=== PATIENT | male | born 1985 | race Caucasian/White ===

== ENCOUNTER 2016-11-12 10:51 | Emergency (ER) | payer MEDICAID, OTHER ==
[~2016-11-12] VITALS: Wt 68.0 kg
[~2016-11-12 10:51] MED LIST: HYDR-3720 PO; IBUP800T25 PO
[2016-11-12] MEDS ORDERED: IBUPROFEN 600 MG TAB PO ONE (14:00)
[2016-11-12] MEDS ORDERED: DIPHTH/TET/ACEL PERTUSS (ADULT) 0.5 ML VIAL IM* ONE (14:00)
[2016-11-12] MEDS ORDERED: LIDOCAINE 1% (MDV) 20 ML INJ SC ONE (14:00)
[2016-11-12] MEDS ORDERED: IBUP-1542 PO (14:21)
--- NOTE | 2016-11-12 15:23 | ERD ---
ER Documentation Chief Complaint Date/Time DATE: 11/12/16 TIME: 15:09 Chief Complaint lip laceration from trauma from a metal lather HPI 31-year-old male presents to ED with small liver laceration and tooth injury. Patient stated that he was working with a power metal lather at work, the laboratory apparatus glass grinder blade broke and kicked the laboratory apparatus glass grinder back towards him and hit his teeth. 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 The broken off plate hit his lower lip and caused a small laceration. Denies loss of consciousness. Denies any other injuries. ROS All systems reviewed and are negative except as per history of present illness. Medications Home Meds Active Scripts Ibuprofen* (Motrin*) 600 Mg Tab, 600 MG PO Q6H Y for PAIN AND OR ELEVATED TEMP, #30 TAB Prov:MAINOR ARCEO. PUPPET MASTER 11/12/16 Ibuprofen* (Motrin*) 800 Mg Tab, 800 MG PO Q6, #30 TAB Prov:LEKKOS,APOSTOLOS A. DO 05/11/16 Hydrocodone Bit-Acetaminophen* ([place]*) 7.5-325 Tablet, 1 TAB PO Q4H Y for PAIN , #14 TAB Prov:LEKKOS,APOSTOLOS A. DO 05/11/16 Allergies Allergies: Coded Allergies: No Known Drug Allergies (Verified Allergy, Mild, 05/11/16) PMhx/Soc History of Surgery: Yes (BILAT INGUINAL HERNIA REPAIR) Anesthesia Reaction: No Hx Neurological Disorder: No Hx Respiratory Disorders: Yes (ASTHMA) Hx Cardiac Disorders: No Hx Psychiatric Problems: No Hx Miscellaneous Medical Probl: Yes Hx Alcohol Use: Yes (OCCASIONAL) Hx Substance Use: Yes (METH USE QUIT 2014) Hx Tobacco Use: Yes Smoking Status: Current every day smoker Physical Exam Vitals Vital Signs Date Time Temp Pulse Resp B/P Pulse Ox O2 Delivery O2 Flow Rate FiO2 11/12/16 11:04 98.1 85 20 131/84 97 Physical Exam General impression: Well-developed, well-nourished, 31-year-old male, alert, oriented, in no acute distress Head: Normocephalic, atraumatic. Eyes: PERRL, EOM normal. Conjunctiva not injected. ENT: Left upper first and second incisors, and right upper first incisor missing with roots intact. 0.5 cm laceration noted on the lower lip, crossing the vermilion border. Respiration: Normal respiratory effort. Lungs clear to auscultate bilaterally. No wheezes, rales or rhonchi. Cardiovascular: Regular rate and rhythm. No murmurs or extra heart sounds. Abdomen: Abdomen normal to inspection. Nontender. No masses or organomegaly. Bowel sounds normal. Neuro: Mental status normal, speech normal. Skin: Normal turgor. No rash or lesions. Psych: Normal mood and affect. Results 24 hrs Current Medications Medications (Trade) Dose Ordered Sig/Jb Route PRN Reason Start Time Stop Time Status Last Admin Dose Admin Diphtheria/ Tetanus/Acell Pertussis (Adacel) 0.5 ml ONCE ONCE IM* 11/12/16 14:00 11/12/16 14:01 DC 11/12/16 13:43 Ibuprofen (Motrin) 600 mg ONCE ONCE PO 11/12/16 14:00 11/12/16 14:01 DC 11/12/16 13:42 Lidocaine (Xylocaine 1% (Mdv) 20 ml) 1 ml ONCE ONCE SC 11/12/16 14:00 11/12/16 14:01 DC Procedures/[facility] Procedure note: laceration repair Verbal consent was obtained for the laceration repair. The wound was copiously irrigated. Local anesthesia was provided using 1% lidocaine. After appropriate anesthesia, the area was explored under a bloodless field. No foreign body, deep structure or tendon involvement was noted. Closure was achieved with 2 interrupted sutures using 5-0 Ethilon. Good cosmetic and hemostatic results were obtained with the closure. The wound was then cleaned and a dressing was applied. TDap given to the patient in the ED. Patient advised to follow-up in the ED in 2 days for wound check. Patient has already made appointment with a dentist to follow-up with his teeth injuries. Departure Diagnosis: Primary Impression: Laceration Additional Impression: Tooth avulsion Condition: Stable Patient Instructions: Laceration, Face (Suture Or Tape) Referrals: COMM[facility]ITY CLINICS YOU HAVE RECEIVED A MEDICAL SCREENING EXAM AND THE RESULTS INDICATE THAT YOU DO NOT HAVE A CONDITION THAT REQUIRES URGENT TREATMENT IN THE EMERGENCY DEPARTMENT. FURTHER EVALUATION AND TREATMENT OF YOUR CONDITION CAN WAIT UNTIL YOU ARE SEEN IN YOUR DOCTORS OFFICE WITHIN THE NEXT 1-2 DAYS. IT IS YOUR RESPONSIBILITY TO MAKE AN APPOINTMENT FOR FOLOW-UP CARE. IF YOU HAVE A PRIMARY DOCTOR --you should call your primary doctor and schedule an appointment IF YOU DO NOT HAVE A PRIMARY DOCTOR YOU CAN CALL OUR PHYSICIAN REFERRAL HOTLINE AT IF YOU CAN NOT AFFORD TO SEE A PHYSICIAN YOU CAN CHOSE FROM THE FOLLOWING [facility] CLINICS [facility] [address] [facility] [address] [facility] [address] [facility] [address] [facility] [address] [facility]. [facility] [address] [facility] ([facility] walk in clinic) Additional Instructions: Return to this facility in 2 DAYS for a follow-up exam.Return sooner if your condition worsens. Follow up with your physician to remove the stitches:For Face wounds 5-7 days.For Elsewhere on the body 7-10 days. MAINOR ARCEO NP Nov 12, 2016 15:21
== END 2016-11-12 14:30 | disposition home or self-care (01) ==
LOC: FTE 10:51
DX: S01.511A Laceration without foreign body of lip, initial encounter (principal); J45.909 Unspecified asthma, uncomplicated; F17.210 Nicotine dependence, cigarettes, uncomplicated; S03.2XXA Dislocation of tooth, initial encounter; W20.8XXA Other cause of strike by thrown, projected or falling object, initial encounter; Y92.89 Other specified places as the place of occurrence of the external cause; Z23 Encounter for immunization
CPT/HCPCS: 12011; 90715; Z7610; 90471

== ENCOUNTER 2017-05-18 21:54 | Emergency (ER) | payer OTHER ==
[~2017-05-18] VITALS: Ht 172.7 cm; Wt 61.0 kg
[~2017-05-18 21:54] MED LIST changes: +IBUP-1542 PO
[2017-05-18 21:56] VITALS: Ht 172.7 cm; Wt 61.0 kg
[2017-05-18] MEDS ORDERED: IBUP800T25 PO (22:50)
[2017-05-18] MEDS ORDERED: CEPH-443 PO (22:50)
[2017-05-18] MEDS ORDERED: OFLO5DRO7 LEFT EAR (22:50)
--- NOTE | 2017-05-18 22:58 | ERD ---
ER Documentation Chief Complaint Date/Time DATE: 05/18/17 TIME: 22:52 Chief Complaint left ear bleeding today HPI 31-year-old male complaining of left ear bleeding since earlier today. Patient stated that he went to swing on the [place] 2 days ago. He has been having left ear pain shortly after that. This afternoon, he heard a "pop", and noticed the blood shortly after that. Patient reports decreased hearing on the left side, and also had pain behind his left ear. Denies fever or chills. ROS All systems reviewed and are negative except as per history of present illness. Medications Home Meds Active Scripts Cephalexin* (Keflex*) 500 Mg Capsule, 500 MG PO QID for 7 Days, CAP Prov:MAINOR ARCEO NP 05/18/17 Ofloxacin Otic (Ofloxacin Otic) 5 Ml Drops, 5 DROP LEFT EAR BID for 10 Days, #1 BOTTLE Prov:MAINOR ARCEO. ELEVATOR INSTALLER 05/18/17 Ibuprofen* (Motrin*) 800 Mg Tab, 800 MG PO Q8 Y for PAIN AND OR ELEVATED TEMP, # 30 TAB Prov:MAINOR ARCEO. ELEVATOR INSTALLER 05/18/17 Ibuprofen* (Motrin*) 600 Mg Tab, 600 MG PO Q6H Y for PAIN AND OR ELEVATED TEMP, #30 TAB Prov:MAINOR ARCEO. ELEVATOR INSTALLER 11/12/16 Ibuprofen* (Motrin*) 800 Mg Tab, 800 MG PO Q6, #30 TAB Prov:LECOLETTEOS,APOSTOLOS A. DO 05/11/16 Hydrocodone Bit-Acetaminophen* ([place]*) 7.5-325 Tablet, 1 TAB PO Q4H Y for PAIN , #14 TAB Prov:LECOLETTEOSAPOSTOLOS A. DO 05/11/16 Allergies Allergies: Coded Allergies: No Known Drug Allergies (Verified Allergy, Mild, 05/11/16) PMhx/Soc History of Surgery: Yes (BILAT INGUINAL HERNIA REPAIR) Anesthesia Reaction: No Hx Neurological Disorder: No Hx Respiratory Disorders: Yes (ASTHMA) Hx Cardiac Disorders: No Hx Psychiatric Problems: No Hx Miscellaneous Medical Probl: Yes Hx Alcohol Use: Yes (OCCASIONAL) Hx Substance Use: Yes (METH USE QUIT 2014) Hx Tobacco Use: Yes Smoking Status: Never smoker Physical Exam Vitals Vital Signs Date Time Temp Pulse Resp B/P Pulse Ox O2 Delivery O2 Flow Rate FiO2 05/18/17 21:56 98.3 61 20 136/91 100 Physical Exam General: Well-developed, well-nourished, conscious and coherent, in no distress Skin: Warm and dry without rash, good texture and turgor Head: Normocephalic without evidence of trauma Eyes: Sclera and conjunctivae normal; pupils equal, round, and reactive to light; extraocular movements are intact Ears: Right canal patent, tympanic membrane clear. Left canal erythematous and swollen with serosanguineous discharge, left TM intact but erythematous. Left tragal and mastoid tenderness. Nose/Face: Without rhinorrhea Mouth/throat: Mucous membranes are moist. Posterior pharynx clear without erythema or exudates Neck: Supple without meningismus or adenopathy. Carotids are equal. Trachea midline. No bruits or JVD Chest: Normal AP diameter. Good expansion without retractions. Nontender. Lungs are clear to auscultate bilaterally with good tidal volume Heart: Regular rate and rhythm. No murmur, rub, or gallops heard Neuro: Alert and oriented 4, GCS 15. Cranial nerves grossly intact. Motor and sensory exams nonfocal. Moves all extremities. Speech clear. Gait normal Procedures/MDM 31-year-old male present ED was left ear pain. Although his history is suspicious for ruptured tympanic membrane, he left tympanic membrane is intact on exam. He does show signs of left otitis externa, consistent with swimmer's ear. Patient has left mastoid tenderness palpation, suspicious for mastoiditis. Patient appears well, stable for discharge and outpatient management. Medical decision making shared with patient and family. Education provided to patient and family. Patient and family expressed understanding of the plan. Medications on discharge: Ofloxacin otic, Keflex, ibuprofen. Follow-up: Primary care provider in 2-3 days or return to ED if worse. Disclaimer: Inadvertent spelling and grammatical errors are likely due to EHR/ dictation software use and do not reflect on the overall quality of patient care. Also, please note that the electronic time recorded on this note does not necessarily reflect the actual time of the patient encounter. Departure Diagnosis: Primary Impression: Otitis externa Otitis externa type: swimmer's ear Laterality: left Chronicity: acute Qualified Code: H60.332 - Acute swimmer's ear of left side Condition: Stable Patient Instructions: External Ear Infection (Adult) Referrals: [facility] CL[facility]ICS YOU HAVE RECEIVED A MEDICAL SCREENING EXAM AND THE RESULTS INDICATE THAT YOU DO NOT HAVE A CONDITION THAT REQUIRES URGENT TREATMENT IN THE EMERGENCY DEPARTMENT. FURTHER EVALUATION AND TREATMENT OF YOUR CONDITION CAN WAIT UNTIL YOU ARE SEEN IN YOUR DOCTORS OFFICE WITHIN THE NEXT 1-2 DAYS. IT IS YOUR RESPONSIBILITY TO MAKE AN APPOINTMENT FOR FOLOW-UP CARE. IF YOU HAVE A PRIMARY DOCTOR --you should call your primary doctor and schedule an appointment IF YOU DO NOT HAVE A PRIMARY DOCTOR YOU CAN CALL OUR PHYSICIAN REFERRAL HOTLINE AT IF YOU CAN NOT AFFORD TO SEE A PHYSICIAN YOU CAN CHOSE FROM THE FOLLOWING [facility] [address] [facility]. [facility] [address] [facility] [facility] [address] [facility] [address] [facility] [facility] [address] [facility]. [facility] [address] Additional Instructions: Call your primary care doctor TOMORROW for an appointment during the next 2-3 days.See the doctor sooner or return here if your condition worsens before your appointment time. MAINOR ARCEO NP May 18, 2017 22:58
== END 2017-05-18 22:59 | disposition home or self-care (01) ==
LOC: FTE 21:54
DX: H60.332 Swimmer's ear, left ear (principal); J45.909 Unspecified asthma, uncomplicated; F17.210 Nicotine dependence, cigarettes, uncomplicated
CPT/HCPCS: 99283

== ENCOUNTER 2017-08-12 18:01 | Emergency (ER) | payer OTHER ==
[~2017-08-12] VITALS: Ht 172.7 cm; Wt 58.0 kg
[~2017-08-12 18:01] MED LIST changes: +CEPH-443 PO; +OFLO5DRO7 LEFT EAR
[2017-08-12 18:04] VITALS: Ht 172.7 cm; Wt 58.0 kg
[2017-08-12] MEDS ORDERED: KETOROLAC 60 MG INJ IM STA (18:44)
[2017-08-12] MEDS ORDERED: ACETAMINOPHEN 325 MG TAB PO ONE (19:00)
--- NOTE | 2017-08-12 19:06 | ERD ---
ER Documentation Chief Complaint Chief Complaint WEDNESDAY WITH FLU LIKE SYMPTOMS CHILLS FEVER COUGH ST HPI 31-year-old male presents here in emergency department cough runny nose congestion sore throat body aches chills fever that started 4 days ago. Patient has been having dry cough, does not cough up any phlegm or blood. Patient does not have any shortness of breath or wheezing. Patient denies any sick contacts. Patient took [id number] therapy and ibuprofen with mild relief. ROS All systems reviewed and are negative except as per history of present illness. Medications Home Meds Active Scripts Acetaminophen* (Tylophen*) 500 Mg Capsule, 1 CAP PO Q6H Y for PAIN AND OR ELEVATED TEMP, #20 CAP Prov:FRENCH SHIPLEY NP 08/12/17 Albuterol Sulfate* (Proair HFA*) 8.5 Gm Hfa.aer.ad, 2 PUFF INH Q4H Y for WHEEZING AND SOB, #1 INHALER Prov:FRENCH SHIPLEY NP 08/12/17 Guaifenesin-Codeine Phosphate* (Guaifenesin* AC Cough Syrup) 473 Ml Liquid, 10 ML PO Q4H Y for COUGH, #60 ML Prov:FRENCH SHIPLEY NP 08/12/17 Cetirizine Hcl* (Zyrtec*) 10 Mg Capsule, 10 MG PO DAILY, #30 TAB.CHEW Prov:FRENCH SHIPLEY NP 08/12/17 Ibuprofen* (Motrin*) 600 Mg Tab, 600 MG PO Q6H Y for PAIN AND OR ELEVATED TEMP, #30 TAB Prov:FRENCH SHIPLEY NP 08/12/17 Cephalexin* (Keflex*) 500 Mg Capsule, 500 MG PO QID for 7 Days, CAP Prov:MAINOR ARCEO NP 05/18/17 Ofloxacin Otic (Ofloxacin Otic) 5 Ml Drops, 5 DROP LEFT EAR BID for 10 Days, #1 BOTTLE Prov:MAINOR ARCEO NP 05/18/17 Ibuprofen* (Motrin*) 800 Mg Tab, 800 MG PO Q8 Y for PAIN AND OR ELEVATED TEMP, # 30 TAB Prov:MAINOR ARCEO NP 05/18/17 Ibuprofen* (Motrin*) 600 Mg Tab, 600 MG PO Q6H Y for PAIN AND OR ELEVATED TEMP, #30 TAB Prov:MAINOR ARCEO OUTSIDE SALESMAN 11/12/16 Ibuprofen* (Motrin*) 800 Mg Tab, 800 MG PO Q6, #30 TAB Prov:LESTER MAHARAJ. DO 05/11/16 Hydrocodone Bit-Acetaminophen* ([place]*) 7.5-325 Tablet, 1 TAB PO Q4H Y for PAIN , #14 TAB Prov:ELVA MAHARAJSTOLOS A. DO 05/11/16 Allergies Allergies: Coded Allergies: No Known Drug Allergies (Verified Allergy, Mild, 05/11/16) PMhx/Soc History of Surgery: Yes (BILAT INGUINAL HERNIA REPAIR) Anesthesia Reaction: No Hx Neurological Disorder: No Hx Respiratory Disorders: Yes (ASTHMA) Hx Cardiac Disorders: No Hx Psychiatric Problems: No Hx Miscellaneous Medical Probl: Yes Hx Alcohol Use: Yes (OCCASIONAL) Hx Substance Use: Yes (METH USE QUIT 2014) Hx Tobacco Use: Yes Smoking Status: Heavy tobacco smoker FmHx Family History: No coronary disease, No diabetes, No other Physical Exam Vitals Vital Signs Date Time Temp Pulse Resp B/P Pulse Ox O2 Delivery O2 Flow Rate FiO2 08/12/17 21:07 99.2 85 16 98 Room Air 08/12/17 18:04 101.7 129 18 118/75 98 Physical Exam GENERAL: The patient is well developed and appropriate for usual state of health, in no apparent distress. HEENT: Atraumatic. Ears: Normal tympanic membrane, no erythema or bulging. No ear canal swelling. No ear discharge. Nose: Erythematous nasal turbinates with clear nasal discharge. Throat: oropharynx symptoms with postnasal drip. No tonsillar swelling or tonsillar exudates. No lymphadenopathy. CHEST: Clear to auscultation bilaterally. There are no rales, wheezes or rhonchi. HEART: Regular rate and rhythm. No murmurs, clicks, rubs or gallops. No S3 or S4. ABDOMEN: Soft, nontender and nondistended. Good bowel sounds. No rebound or guarding. No gross peritonitis. No gross organomegaly or masses. No Vera sign or McBurney point tenderness. BACK: No midline or flank tenderness. EXTREMITIES: Equal pulses bilaterally. There is no peripheral clubbing, cyanosis or edema. No focal swelling or erythema. Full range of motion. Grossly neurovascularly intact. NEURO: Alert and oriented. Cranial nerves 2-12 intact. Motor strength in all 4 extremities with 5/5 strength. Sensation grossly intact. Normal speech and gait. SKIN: There is no apparent rash or petechia. The skin is warm and dry. HEMATOLOGIC AND LYMPHATIC: There is no evidence of excessive bruising or lymphedema. No gross cervical, axillary, or inguinal lymphadenopathy. Results 24 hrs Current Medications Medications (Trade) Dose Ordered Sig/Jb Route PRN Reason Start Time Stop Time Status Last Admin Dose Admin Ketorolac Tromethamine (Toradol) 60 mg ONCE STAT IM 08/12/17 18:44 08/12/17 18:45 DC 08/12/17 19:08 Acetaminophen (Tylenol Tab) 650 mg ONCE ONCE PO 08/12/17 19:00 08/12/17 19:01 DC 08/12/17 19:08 Patient was given medicines for fever control here in the emergency department. After treatment, patient temperature improved and lower. Patient appears well and is hemodynamically stable. PROCEDURE: Chest x-ray CLINICAL INDICATION: Cough and fever TECHNIQUE: Chest single view COMPARISON: 05/11/2016 FINDINGS: The heart is normal in size. The pulmonary vessels are normal in caliber. Abnormal right paratracheal density which likely represents a right sided aortic arch. Recommend a CT scan for confirmation of to exclude adenopathy. Mild hyperinflation is noted of the lungs. The previously seen right lower lobe pneumonia has resolved. Lungs are clear. Costophrenic angles are sharp. IMPRESSION: 1. Persistent abnormal right paratracheal density. 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 Adenopathy is not excluded and a CT scan is recommended for further evaluation. 2. Mild hyperinflation of the lungs. 3. Lungs grossly clear RPTAT: HH .Jimmie Burdick MD, Date Time Electronically viewed and signed by .Jimmie Burdick MD, on 08/12/2017 20:12 .W/ CC: FRENCH SHIPLEY OUTSIDE SALESMAN Procedures/MDM Medical Decision Making: Patient symptoms are most likely consistent with viral syndrome. There is low suspicion for Pneumonia at this time since patient s lungs sounds are clear, patient O2 saturation is normal and patient doesnt show any respiratory distress. Patients chest xray doesnt show infiltrates or any other cardiopulmonary emergencies at this time. There is low suspicion for other cardiopulmonary emergencies at this time such as CHF, Pulmonary Embolism, Pneumothorax, or any other cardiopulmonary emergencies at this time. There is low suspicion for sepsis. Patient appears well and is hemodynamically stable. Fever is controlled with medicines. Disposition: Home. Condition: Stable Prescriptions: zyrtec, ibuprofen, ProAir, Guaifenasin with codeine Instructions: Patient is advised to take medications as prescribed. Patient is advised to rest. Patient advised to increase fluid intake, do humidifier at home and if possible, do salt water gargles. Patient is advised that if symptoms are worse, shortness of breath, uncontrolled fever, stridor, vomiting, worst signs and symptoms to return to emergency department immediately. Otherwise, patient is advised to follow up with primary doctor in 5-7 days. Disclaimer: Inadvertent spelling and grammatical errors are likely due to EHR/ dictation software use and do not reflect on the overall quality of patient care. Also, please note that the electronic time recorded on this note does not necessarily reflect the actual time of the patient encounter. Departure Diagnosis: Primary Impression: Viral syndrome Condition: Stable Patient Instructions: Viral Syndrome (Child) Additional Instructions: Patient is advised to take medications as prescribed. Patient is advised to rest. Patient advised to increase fluid intake, do humidifier at home and if possible, do salt water gargles. Patient is advised that if symptoms are worse, shortness of breath, uncontrolled fever, stridor, vomiting, worst signs and symptoms to return to emergency department immediately. Otherwise, patient is advised to follow up with primary doctor in 5-7 days. FRENCH SHIPLEY NP Aug 12, 2017 19:06
--- NOTE | 2017-08-12 20:12 | RADRPT ---
PROCEDURE: Chest x-ray CLINICAL INDICATION: Cough and fever TECHNIQUE: Chest single view COMPARISON: 05/11/2016 FINDINGS: The heart is normal in size. The pulmonary vessels are normal in caliber. Abnormal right paratrache al density which likely represents a right sided aortic arch. Recommend a CT scan for confirmation o f to exclude adenopathy. Mild hyperinflation is noted of the lungs. The previously seen right lower lobe pneumonia has resolved. Lungs are clear. Costophrenic angles are sharp. IMPRESSION: 1. Persistent abnormal right paratracheal density. 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 Adenopathy is not excluded and a CT scan is recommended for further evaluation. 2. Mild hyperinflation of the lungs. 3. Lungs grossly clear RPTAT: HH .Jimmie Burdick MD, Date Time Electronically viewed and signed by .Jimmie Burdick MD, on 08/12/2017 20:12 .W/
[2017-08-12] MEDS ORDERED: CETI10CA PO (20:43)
[2017-08-12] MEDS ORDERED: GUAI473L22 PO (20:43)
[2017-08-12] MEDS ORDERED: IBUP-1542 PO (20:43)
[2017-08-12] MEDS ORDERED: ALBU8.5H3 INH (20:43)
[2017-08-12] MEDS ORDERED: ACET500C5 PO (20:43)
[2017-08-12 21:07] VITALS: PULSE 85; RESP 16; TEMP 99.2
== END 2017-08-12 21:06 | disposition home or self-care (01) ==
LOC: FTE 18:01
DX: B34.9 Viral infection, unspecified (principal); J45.909 Unspecified asthma, uncomplicated; F17.210 Nicotine dependence, cigarettes, uncomplicated
CPT/HCPCS: 71010; 96372; J1885; Z7502; Z7610

== ENCOUNTER 2017-08-18 12:30 | Inpatient (IN) | payer OTHER ==
[~2017-08-18] VITALS: Ht 177.8 cm; Wt 59.0 kg
[~2017-08-18 12:30] MED LIST changes: +ACET500C5 PO; +ALBU8.5H3 INH; +CETI10CA PO; +GUAI473L22 PO
[2017-08-18] MEDS ORDERED: ONDANSETRON 4 MG INJ IV STA (14:48)
[2017-08-18] MEDS ORDERED: ACETAMINOPHEN 500 MG TAB PO STA (14:48)
[2017-08-18] MEDS ORDERED: KETOROLAC 30 MG INJ IV STA (14:48)
[2017-08-18] MEDS ORDERED: SOD CHLORIDE 0.9% 1,000 ML IV ONE (15:00)
[2017-08-18 15:11] LABS: BASOPHILS % 0.2 % (0.0-2.0); EOSINOPHILS % 0.1 % (0.0-7.0); HEMATOCRIT 40.1 % (42.0-52.0); HEMOGLOBIN 13.4 g/dl (14.0-18.0); LYMPHOCYTES # 1.6 10^3/ul (0.8-2.9); LYMPHOCYTES % 9.6 % (15.0-51.0); MEAN CORPUSCULAR HEMOGLOBIN 28.7 pg (29.0-33.0); MEAN CORPUSCULAR HGB CONC 33.4 g/dl (32.0-37.0); MEAN CORPUSCULAR VOLUME 85.9 fl (82.0-101.0); MEAN PLATELET VOLUME 9.1 fl (7.4-10.4); MONOCYTE # 1.2 10^3/ul (0.3-0.9); MONOCYTES % 7.2 % (0.0-11.0); NEUTROPHILS % 82.3 % (39.0-77.0); PLATELET COUNT 416 10^3/UL (140-415); RED BLOOD COUNT 4.67 10^6/ul (4.70-6.10); RED CELL DISTRIBUTION WIDTH 13.7 % (11.5-14.5)
--- NOTE | 2017-08-18 15:34 | RADRPT ---
PROCEDURE: XR Chest. CLINICAL INDICATION: Fever, cough TECHNIQUE: Single frontal view of the chest was obtained COMPARISON: 05/11/16, 08/12/2017 FINDINGS: The heart is normal in size. There is a right-sided aortic arch. There is moderate scoliosis of the thoracic spine. There is a new mild right lower lobe infiltrate. There is no pleural effusion or pneumothorax. RPTAT: AA IMPRESSION: New patchy right lower lobe infiltrate. Right-sided aortic arch. .Piero Omalley MD, Date Time Electronically viewed and signed by .Piero Omalley MD, on 08/18/2017 15:33 .S/
--- NOTE | 2017-08-18 15:38 | ERD ---
ER Documentation Chief Complaint Chief Complaint flu like sx x 1 week was here 6 days (SANDHYA MACK PA-C) HPI This a 31-year-old male who presents the emergency department today complaining of fever, cough, sore throat, body aches for the past week. Patient states he was here previously and has been taking the medications that he has produced been prescribed. States she has not been able to go to work but did try to check and there today and realized he had a fever and went home. States he also has some vomiting and decreased appetite. Denies any abdominal pain. (SANDHYA MACK PA-C) ROS All systems reviewed and are negative except as per history of present illness. (SANDHYA MACK PA-C) Medications Home Meds Active Scripts Acetaminophen* (Tylophen*) 500 Mg Capsule, 1 CAP PO Q6H Y for PAIN AND OR ELEVATED TEMP, #20 CAP Prov:FRENCH SHIPLEY NP 08/12/17 Albuterol Sulfate* (Proair HFA*) 8.5 Gm Hfa.aer.ad, 2 PUFF INH Q4H Y for WHEEZING AND SOB, #1 INHALER Prov:FRENCH SHIPLEY NP 08/12/17 Guaifenesin-Codeine Phosphate* (Guaifenesin* AC Cough Syrup) 473 Ml Liquid, 10 ML PO Q4H Y for COUGH, #60 ML Prov:FRENCH SHIPLEY NP 08/12/17 Cetirizine Hcl* (Zyrtec*) 10 Mg Capsule, 10 MG PO DAILY, #30 TAB.CHEW Prov:FRENCH SHIPLEY NP 08/12/17 Ibuprofen* (Motrin*) 600 Mg Tab, 600 MG PO Q6H Y for PAIN AND OR ELEVATED TEMP, #30 TAB Prov:FRENCH SHIPLEY NP 08/12/17 Cephalexin* (Keflex*) 500 Mg Capsule, 500 MG PO QID for 7 Days, CAP Prov:MAINOR ARCEO NP 05/18/17 Ofloxacin Otic (Ofloxacin Otic) 5 Ml Drops, 5 DROP LEFT EAR BID for 10 Days, #1 BOTTLE Prov:MAINOR ARCEO NP 05/18/17 Ibuprofen* (Motrin*) 800 Mg Tab, 800 MG PO Q8 Y for PAIN AND OR ELEVATED TEMP, # 30 TAB Prov:MAINOR ARCEO. LIDAR TECHNICIAN 05/18/17 Ibuprofen* (Motrin*) 600 Mg Tab, 600 MG PO Q6H Y for PAIN AND OR ELEVATED TEMP, #30 TAB Prov:MAINOR ARCEO. LIDAR TECHNICIAN 11/12/16 Ibuprofen* (Motrin*) 800 Mg Tab, 800 MG PO Q6, #30 TAB Prov:LESTER MAHARAJ DO 05/11/16 Hydrocodone Bit-Acetaminophen* ([place]*) 7.5-325 Tablet, 1 TAB PO Q4H Y for PAIN , #14 TAB Prov:CHERIE MAHARAJS Wilda MILES 05/11/16 Allergies Allergies: Coded Allergies: No Known Drug Allergies (Verified Allergy, Mild, 05/11/16) PMhx/Soc History of Surgery: Yes (BILAT INGUINAL HERNIA REPAIR) Anesthesia Reaction: No Hx Neurological Disorder: No Hx Respiratory Disorders: Yes (ASTHMA) Hx Cardiac Disorders: No Hx Psychiatric Problems: No Hx Miscellaneous Medical Probl: No Hx Alcohol Use: Yes (OCCASIONAL) Hx Substance Use: Yes (METH USE QUIT 2014) Hx Tobacco Use: Yes Smoking Status: Current every day smoker (SANDHYA MACK PA-C) Physical Exam Vitals Vital Signs Date Time Temp Pulse Resp B/P Pulse Ox O2 Delivery O2 Flow Rate FiO2 08/18/17 19:10 98.2 65 19 106/73 95 Room Air 08/18/17 12:35 103.4 108 24 127/88 98 (KAYLEN SZYMANSKI DO) Physical Exam Const: NAD Head: Atraumatic Eyes: Normal Conjunctiva ENT: Ears TMs normal. Nose no drainage. Throat erythema no exudate no vesicles. Poor dentition. Neck: Full range of motion..~ No meningismus. Resp: Clear to auscultation bilaterally Cardio: Regular rate and rhythm, no murmurs Abd: Soft, non tender, non distended. Normal bowel sounds no tenderness at McBurney's. No right upper quadrant pain. Skin: No petechiae or rashes Back: No midline or flank tenderness Ext: No cyanosis, or edema Neur: Awake and alert Psych: Normal Mood and Affect (SANDHYA MACK PA-C) Result Diagram: 08/18/17 1500 08/18/17 1500 Results 24 hrs Laboratory Tests Test 08/18/17 15:00 08/18/17 15:55 08/18/17 16:00 08/18/17 18:30 White Blood Count 17.010^3/ul Red Blood Count 4.6710^6/ul Hemoglobin 13.4g/dl Hematocrit 40.1% Mean Corpuscular Volume 85.9fl Mean Corpuscular Hemoglobin 28.7pg Mean Corpuscular Hemoglobin Concent 33.4g/dl Red Cell Distribution Width 13.7% Platelet Count 45151^3/UL Mean Platelet Volume 9.1fl Neutrophils % 82.3% Lymphocytes % 9.6% Monocytes % 7.2% Eosinophils % 0.1% Basophils % 0.2% Nucleated Red Blood Cells % 0.0/100WBC Neutrophils # 14.010^3/ul Lymphocytes # 1.610^3/ul Monocytes # 1.210^3/ul Eosinophils # 0.010^3/ul Basophils # 0.010^3/ul Nucleated Red Blood Cells # 0.010^3/ul Sodium Level 138mmol/L Potassium Level 4.3mmol/L Chloride Level 100mmol/L Carbon Dioxide Level 23mmol/L Anion Gap 19 Blood Urea Nitrogen 9mg/dl Creatinine 0.85mg/dl Glucose Level 128mg/dl Calcium Level 9.9mg/dl Total Bilirubin 0.5mg/dl Direct Bilirubin 0.00mg/dl Indirect Bilirubin 0.5mg/dl Aspartate Amino Transf (AST/SGOT) 20IU/L Alanine Aminotransferase (ALT/SGPT) 20IU/L Alkaline Phosphatase 90IU/L Total Protein 8.8g/dl Albumin 4.5g/dl Globulin 4.30g/dl Albumin/Globulin Ratio 1.04 Lipase 91U/L Urine Color YELLOW Urine Clarity CLEAR Urine pH 8.0 Urine Specific [place] 1.017 Urine Ketones 2+mg/dL Urine Nitrite NEGATIVEmg/dL Urine Bilirubin NEGATIVEmg/dL Urine Urobilinogen 2+mg/dL Urine Leukocyte Esterase NEGATIVELeu/ul Urine Hemoglobin NEGATIVEmg/dL Urine Glucose NEGATIVEmg/dL Urine Total Protein NEGATIVEmg/dl Lactic Acid Level 1.1mmol/L 1.9mmol/L Current Medications Medications (Trade) Dose Ordered Sig/Jb Route PRN Reason Start Time Stop Time Status Last Admin Dose Admin Sodium Chloride (NS) 1,000 ml @ 1,000 mls/hr Q1H ONCE IV 08/18/17 15:00 08/18/17 15:59 DC 08/18/17 15:06 Ketorolac Tromethamine (Toradol) 30 mg ONCE STAT IV 08/18/17 14:48 08/18/17 14:52 DC 08/18/17 15:05 Acetaminophen (Tylenol Tab) 500 mg ONCE STAT PO 08/18/17 14:48 08/18/17 14:52 DC 08/18/17 14:58 Ondansetron HCl (Zofran Inj) 4 mg ONCE STAT IV 08/18/17 14:48 08/18/17 14:52 DC 08/18/17 14:58 Ceftriaxone Sodium (Rocephin) 1 gm ONCE ONCE IVPB 08/18/17 16:00 08/18/17 16:01 DC 08/18/17 16:04 Sodium Chloride 1830 ml 1,830 ml BOLUS OVER 2 HOURS STAT IV* 08/18/17 16:01 08/18/17 16:07 DC 08/18/17 16:20 Ceftriaxone Sodium 50 ml @ 100 mls/hr ONCE STAT IVPB 08/18/17 16:01 08/18/17 16:30 DC Azithromycin (Zithromax 500mg/ NS (Pmx)) 250 ml @ 250 mls/hr ONCE STAT IV 08/18/17 16:01 08/18/17 17:00 DC 08/18/17 16:20 (KAYLEN SZYMANSKI DO) Results 24 hrs DIAGNOSTIC IMAGING REPORT Patient: EMELINA AZUL : 1985 Age: 31 Sex: M MR #: [id number] DOS: 08/18/17 0000 Ordering MD: SANDHYA MACK PA-C Location: [facility] Room/Bed: PROCEDURE: XR Chest. CLINICAL INDICATION: Fever, cough TECHNIQUE: Single frontal view of the chest was obtained COMPARISON: 05/11/16, 08/12/2017 FINDINGS: The heart is normal in size. There is a right-sided aortic arch. There is moderate scoliosis of the thoracic spine. There is a new mild right lower lobe infiltrate. There is no pleural effusion or pneumothorax. RPTAT: AA IMPRESSION: New patchy right lower lobe infiltrate. Right-sided aortic arch. .Piero Omalley MD, MD Date Time Electronically viewed and signed by .Piero Omalley MD, MD on 08/18/2017 15: 33 .S/ CC: SANDHYA MACK PA-C DATE: 08/18/17 [facility] PAGE 1 RUN TIME: [id number] [place] [address] Clint Hook M.D. [employer] REBEL#: [id number] Name: EMELINA AZUL Age/Sex: 31/M Attend Dr: MATHIEU RAYGOZA Acct: [id number] MR# : [id number] : 1985 Location: [facility] Admit: 08/18/17 Specimen: [id number] Status: Complete Dede: 08/18/17 Rcvd: 08/18 Source: THROAT Sp Descrip: Procedure Result Microbiology RAPID STREP ANTIGEN BY EIA Final RAPID STREP ANTIGEN ,EIA NEGATIVE (Ref Range Neg) ................................................................................ ............ Flags: Critical Hi = *H Critical Lo = *L Microbiology Abnormal = * Abnormal Hi = H Abnormal Lo = L Blood Bank Abnormal = * Susceptability Flags: S = Sensitive R = Resistant I = Intermediate END OF REPORT RUN DATE: 08/18/17 [facility] PAGE 1 RUN TIME: [id number] [place] [address] Clint Hook M.D. [employer] REBEL#: [id number] Name: EMELINA AZUL Age/Sex: 31/M Attend Dr: MATHIEU RAYGOZA Acct: [id number] MR# : [id number] : 1985 Location: [facility] Admit: 08/18/17 Specimen: [id number] Status: Complete Dede: 08/18/17 Rcvd: [id number] Source: [place] Sp Descrip: Procedure Result Microbiology INFLUENZA A & B BY EIA Final INFLU A&B BY EIA INFLUENZA A NEGATIVE (Ref Range Neg) INFLUENZA B NEGATIVE (Ref Range Neg) ................................................................................ ............ Flags: Critical Hi = *H Critical Lo = *L Microbiology Abnormal = * Abnormal Hi = H Abnormal Lo = L Blood Bank Abnormal = * Susceptability Flags: S = Sensitive R = Resistant I = Intermediate END OF REPORT (SANDHYA MACK PA-C) Procedures/MDM This is a 31-year-old male who presents the emergency department today for flulike symptoms. Upon review of patient's medical records patient was seen here on August 12, 2017 and had a essentially negative chest x-ray at that time. He was discharged home with [id number] medications which he indicated he had been taking. Today patient was febrile at 103.4 and was also tachycardic. His respirations were 24. Given this I did obtain laboratory work as well as repeat a chest x-ray and obtain an influenza and strep swab. Laboratory work shows an elevated white blood cell count of 17. His hemoglobin is very mildly decreased. Platelets are within normal limits. Electrolytes are within normal limits. Glucose is within normal limits. Liver enzymes and lipase are within normal limits. UA and blood cultures are pending. Influenza a and B is negative Strep a antigen is negative Chest x-ray shows a new mild right lower lobe infiltrate. There is no pleural effusion or pneumothorax. Patient did report having vomiting however he has no abdominal pain on physical exam there is no tenderness at McBurney's or in the right upper quadrant and I have low suspicion for acute surgical abdomen. Symptoms at this time is consistent with pneumonia and sepsis . Discussed the patient with Dr. Szymanski and he recommended the patient be admitted for pneumonia and sepsis. Patient was given Toradol, IV fluids, Rocephin, azithromycin, Tylenol. Any further orders placed will be completed by Dr. Szymanski or the admitting physician (SANDHYA MACK PA-C) Pneumonia with sepsis and 31-year-old male. Diagnosis of sepsis was not made until 145 minutes after the patient arrival as he was in the waiting room for over 2 hours. Is given 30 cc/kg of IV fluid as well as Rocephin and azithromycin for community acquired pneumonia. Vital signs are stabilized after fluid resuscitation over patient stated that he was significantly weak and short of breath that he did not want to be discharged. I will agree with admission for IV antibiotics this patient is ill-appearing. Panel is admitting with on day on-call. Chest x-ray interpretation: Right lower lobe pneumonia, pneumothorax, no pulmonary edema, no fractures intel analyst interpretation: Initial sinus tachycardia eventually corrected to normal sinus rhythm without other arrhythmias Care time 32 minutes: This includes treatment of pneumonia with sepsis and a ill -appearing patient, treatment of unstable vital signs, early antibiotic administration and careful fluid administration, review of chart and discussion with patient admitting doctor. This does not include any billable procedures. (KAYLEN SZYMANSKI DO) Departure Diagnosis: Primary Impression: Influenza Additional Impression: Sepsis Sepsis type: sepsis due to unspecified organism Qualified Code: A41.9 - Sepsis, due to unspecified organism Condition: Fair SANDHYA MACK PA-C Aug 18, 2017 15:38 KAYLEN SZYMANSKI DO Aug 18, 2017 20:14
[2017-08-18 15:50] LABS: ALBUMIN 4.5 g/dl (3.3-4.9); ALBUMIN/GLOBULIN RATIO 1.04; BILIRUBIN,INDIRECT 0.5 mg/dl (0-1.1); BILIRUBIN,TOTAL 0.5 mg/dl (0.2-1.3); CALCIUM 9.9 mg/dl (8.4-10.2); CREATININE 0.85 mg/dl (0.61-1.24); POTASSIUM 4.3 mmol/L (3.5-5.1); TOTAL PROTEIN 8.8 g/dl (6.1-8.1)
[2017-08-18] MEDS ORDERED: CEFTRIAXONE 1 GM INJ IVPB ONE (16:00)
[2017-08-18] MEDS ORDERED: AZITHROMYCIN 500MG/NS (PMX) 250 ML IV STA (16:01)
[2017-08-18] MEDS ORDERED: CEFTRIAXONE 1 GM/50 ML (PMX) 50 ML IVPB STA (16:01)
[2017-08-18] MEDS ORDERED: SODIUM CHLORIDE 0.9% 1L BAG IV* STA (16:01)
[2017-08-18 17:15] LABS: ADD UMIC NO; UR ASCORBIC ACID NEGATIVE (NEGATIVE); UR BILIRUBIN (Dip) NEGATIVE (NEGATIVE); UR BLOOD (Dip) NEGATIVE (NEGATIVE); UR CLARITY CLEAR (CLEAR); UR COLOR YELLOW (YELLOW); UR GLUCOSE (Dip) NEGATIVE (NEGATIVE); UR KETONES (Dip) 2+ mg/dL (NEGATIVE); UR LEUKOCYTE ESTERASE (Dip) NEGATIVE Leu/ul (NEGATIVE); UR NITRITE (Dip) NEGATIVE (NEGATIVE); UR SPECIFIC GRAVITY (Dip) 1.017 (1.003-1.030); UR TOTAL PROTEIN (Dip) NEGATIVE (NEGATIVE); UR UROBILINOGEN (Dip) 2+ mg/dL (NEGATIVE)
[2017-08-18] MEDS ORDERED: ONDANSETRON 4 MG INJ IV PRN (20:30)
[2017-08-18] MEDS ORDERED: ACETAMINOPHEN 325 MG TAB PO PRN (20:30)
[2017-08-19 00:28] VITALS: PULSE 60; TEMP 98.5
[2017-08-19 01:00] VITALS: Ht 177.8 cm; Wt 59.0 kg
[2017-08-19] MEDS ORDERED: ALBUTEROL/IPRATROPIUM (NEB) 3 ML AMP HHN PRN (01:30)
[2017-08-19] MEDS ORDERED: morphine 2 MG INJ IV PRN (01:30)
--- NOTE | 2017-08-19 06:42 | HP ---
Date/Time of Note Date/Time of Note DATE: 08/19/17 TIME: 06:38 Assessment/Plan VTE Prophylaxis VTE Prophylaxis Intervention: SCD's Lines/Catheters IV Catheter Type (from Nrsg): Saline Lock Assessment/Plan Assessment/Plan 1. Sepsis, secondary to right lower lung pneumonia -IV antibiotic -IV fluid -Follow-up culture results, including restarted culture if possible -Breathing treatments as needed 2. History of asthma -Continue supplemental oxygen. Breathing treatments as needed HPI/ROS Admit Date/Time Admit Date/Time Aug 18, 2017 at 20:19 Hx of Present Illness This is a 31-year-old male with a history of asthma and history of methamphetamine abuse presented to the ER complaining of cough, shortness of breath, fever and generalized body ache. Denied chest pain, nausea/vomiting, abdominal pain or urinary symptoms. When he presented to the ER, he was febrile with a temperature of 103.4, heart rate 108, RR 24. Chest x-ray shows right lower lobe infiltrate. Labs shows WBC of 17,000. PMH/Family/Social Social History Smoking Status: Current every day smoker Exam/Review of Systems Vital Signs Vitals Vital Signs Date Time Temp Pulse Resp B/P Pulse Ox O2 Delivery O2 Flow Rate FiO2 08/19/17 00:28 98.5 60 18 116/70 96 Room Air Exam Constitutional: alert, oriented Head: atraumatic, normocephalic Eyes: EOMI, PERRL Respiratory: other (There are decreased breath sounds at the right base) Cardiovascular: regular rate and rhythm Gastrointestinal: non-tender, soft Extremities: normal pulses Labs Result Diagram: 08/18/17 1500 08/18/17 1500 Medications Medications Current Medications Morphine Sulfate (morphine) 2 mg Q4H PRN IV PAIN; Start 08/19/17 at 01:30 PAOLA MCCORD MD Aug 19, 2017 06:42
[2017-08-19] MEDS ORDERED: NACL 0.9% 3 ML SYG IV SCH (07:00)
[2017-08-19] MEDS ORDERED: ACETAMINOPHEN 325 MG TAB PO PRN (07:00)
[2017-08-19 07:29] VITALS: BP 111/59; RESP 16
[2017-08-19 08:21] LABS: BASOPHILS % 0.2 % (0.0-2.0); EOSINOPHILS # 0.1 10^3/ul (0.0-0.5); EOSINOPHILS % 0.5 % (0.0-7.0); HEMATOCRIT 37.6 % (42.0-52.0); HEMOGLOBIN 12.8 g/dl (14.0-18.0); LYMPHOCYTES # 1.7 10^3/ul (0.8-2.9); LYMPHOCYTES % 11.1 % (15.0-51.0); MEAN CORPUSCULAR HEMOGLOBIN 29.5 pg (29.0-33.0); MEAN CORPUSCULAR VOLUME 86.6 fl (82.0-101.0); MEAN PLATELET VOLUME 9.3 fl (7.4-10.4); MONOCYTE # 1.3 10^3/ul (0.3-0.9); MONOCYTES % 8.5 % (0.0-11.0); NEUTROPHIL # 11.8 10^3/ul (1.6-7.5); NEUTROPHILS % 78.9 % (39.0-77.0); PLATELET COUNT 418 10^3/UL (140-415); RED BLOOD COUNT 4.34 10^6/ul (4.70-6.10); RED CELL DISTRIBUTION WIDTH 13.4 % (11.5-14.5)
[2017-08-19 08:39] LABS: ALBUMIN 3.3 g/dl (3.3-4.9); ALBUMIN/GLOBULIN RATIO 0.82; BILIRUBIN,INDIRECT 0.4 mg/dl (0-1.1); BILIRUBIN,TOTAL 0.4 mg/dl (0.2-1.3); CREATININE 0.72 mg/dl (0.61-1.24); POTASSIUM 4.1 mmol/L (3.5-5.1); TOTAL PROTEIN 7.3 g/dl (6.1-8.1)
[2017-08-19] MEDS ORDERED: OFLOXACIN 0.3% LEFT EAR SCH (09:00)
[2017-08-19] MEDS: CIPROFLOXACIN HCL OTIC DROP 0.25 ML LEFT EAR SCH ×2 (09:00→21:00)
[2017-08-19] MEDS: SOD CHLORIDE 0.9% 1,000 ML IV SCH ×2 (09:29→17:00)
--- NOTE | 2017-08-19 10:14 | PN ---
Date/Time of Note Date/Time of Note DATE: 08/19/17 TIME: 10:10 Assessment/Plan VTE Prophylaxis VTE Prophylaxis Intervention: ambulation Lines/Catheters IV [facility] Saline Lock Assessment/Plan Chief Complaint/Hosp Course 31-year-old male presents with fever, cough, sore throat, body [id number]. 1. Sepsis, secondary to right lower lung pneumonia. Improving. -Patient will be continued on IV azithromycin/ceftriaxone. Continue IV fluids and follow-up cultures. 2. Tobacco use. -Cessation advised. 3. Former meth user. Plan: Patient with overall symptoms. If his condition remains stable, estimated discharge in next 24 hours. Patient was seen in collaboration with Dr. Delarosa. Problems: Subjective 24 Hr Interval Summary Free Text/Dictation Patient doing well. He is afebrile. No further cough or shortness of breath. Exam/Review of Systems Vital Signs Vitals Vital Signs Date Time Temp Pulse Resp B/P Pulse Ox O2 Delivery O2 Flow Rate FiO2 08/19/17 07:29 99.0 71 16 111/59 95 08/19/17 00:28 Room Air Exam General: Thin built male with multiple tattoos, not in any acute distress . HEENT: Normocephalic, Atraumatic, No laceration or hematoma; Eyes: PEERL, Conjunctiva clear, Anicteric sclera Neck: Supple without any lymphadenopathy, nontender, no JVD, no carotid bruits, trachea midline, no thyromegaly Cardiac: S1, S2 auscultated, regular rhythm and rate, no mumurs or gallop Pulmonary: Normal respiratory effort. Chest clear to auscultation bilaterally, no adventitious breath sounds GI: Abdomen normal to inspection. Soft, non tender, non- distended, no masses, no rebound tenderness or guarding. Bowel sounds active on all four quadrants Genitourinary: Deferred Extremities: No cyanosis, clubbing, or edema. Pulses [2+] bilaterally. Full ROM on all four extremities. No focal weakness appreciated. Neurologic: Alert to person, place, time, and situation. Affect appropriate, intact sensation. Skin: With multiple tattoos. Clean,dry, and intact. No ecchymosis, no rashes, or lesions Results Result Diagram: 08/19/17 0801 08/19/17 08 Results 24 hrs Laboratory Tests Test 08/18/17 15:00 08/18/17 15:55 08/18/17 16:00 08/18/17 18:30 White Blood Count 17.0 H Red Blood Count 4.67 L Hemoglobin 13.4 L Hematocrit 40.1 L Mean Corpuscular Volume 85.9 Mean Corpuscular Hemoglobin 28.7 L Mean Corpuscular Hemoglobin Concent 33.4 Red Cell Distribution Width 13.7 Platelet Count 416 H Mean Platelet Volume 9.1 Neutrophils % 82.3 H Lymphocytes % 9.6 L Monocytes % 7.2 Eosinophils % 0.1 Basophils % 0.2 Nucleated Red Blood Cells % 0.0 Neutrophils # 14.0 H Lymphocytes # 1.6 Monocytes # 1.2 H Eosinophils # 0.0 Basophils # 0.0 Nucleated Red Blood Cells # 0.0 Sodium Level 138 Potassium Level 4.3 Chloride Level 100 Carbon Dioxide Level 23 Anion Gap 19 H Blood Urea Nitrogen 9 Creatinine 0.85 Glucose Level 128 Calcium Level 9.9 Total Bilirubin 0.5 Direct Bilirubin 0.00 Indirect Bilirubin 0.5 Aspartate Amino Transf (AST/SGOT) 20 Alanine Aminotransferase (ALT/SGPT) 20 Alkaline Phosphatase 90 Total Protein 8.8 H Albumin 4.5 Globulin 4.30 H Albumin/Globulin Ratio 1.04 Lipase 91 Urine Color YELLOW Urine Clarity CLEAR Urine pH 8.0 Urine Specific [place] 1.017 Urine Ketones 2+ H Urine Nitrite NEGATIVE Urine Bilirubin NEGATIVE Urine Urobilinogen 2+ H Urine Leukocyte Esterase NEGATIVE Urine Hemoglobin NEGATIVE Urine Glucose NEGATIVE Urine Total Protein NEGATIVE Lactic Acid Level 1.1 1.9 Test 08/18/17 21:25 08/19/17 08:01 Lactic Acid Level 1.1 White Blood Count 15.0 H Red Blood Count 4.34 L Hemoglobin 12.8 L Hematocrit 37.6 L Mean Corpuscular Volume 86.6 Mean Corpuscular Hemoglobin 29.5 Mean Corpuscular Hemoglobin Concent 34.0 Red Cell Distribution Width 13.4 Platelet Count 418 H Mean Platelet Volume 9.3 Neutrophils % 78.9 H Lymphocytes % 11.1 L Monocytes % 8.5 Eosinophils % 0.5 Basophils % 0.2 Nucleated Red Blood Cells % 0.0 Neutrophils # 11.8 H Lymphocytes # 1.7 Monocytes # 1.3 H Eosinophils # 0.1 Basophils # 0.0 Nucleated Red Blood Cells # 0.0 Sodium Level 138 Potassium Level 4.1 Chloride Level 105 Carbon Dioxide Level 22 Anion Gap 15 Blood Urea Nitrogen 11 Creatinine 0.72 Glucose Level 99 Calcium Level 9.0 Total Bilirubin 0.4 Direct Bilirubin 0.00 Indirect Bilirubin 0.4 Aspartate Amino Transf (AST/SGOT) 17 Alanine Aminotransferase (ALT/SGPT) 34 Alkaline Phosphatase 65 Total Protein 7.3 # Albumin 3.3 # Globulin 4.00 H Albumin/Globulin Ratio 0.82 Medications Medications Current Medications Morphine Sulfate (morphine) 2 mg Q4H PRN IV PAIN; Start 08/19/17 at 01:30 Acetaminophen 650 mg 650 mg Q6H PRN PO PAIN LEVEL 1-3 OR FEVER; Start at 07:00 Sodium Chloride (NS) 1,000 ml @ 100 mls/hr Q10H IV Last administered on t 09:29; Admin Dose 100 MLS/HR; Start 08/19/17 at 07:00; Stop 08/19/17 at 23:00 Ciprofloxacin HCl 1 drop 1 drop BID LEFT EAR ; Start 08/19/17 at 09:00; Stop 08/25/17 at 21:01 Azithromycin 250 ml @ 250 mls/hr Q24H IVPB ; Start 08/19/17 at 16:00 Ceftriaxone Sodium (Rocephin) 50 ml @ 100 mls/hr Q24H IVPB ; Start 08/19/17 at 15:00 KAIN MAHAN NP Aug 19, 2017 10:14
[2017-08-19 14:07] VITALS: BP 129/72; RESP 16
[2017-08-19] MEDS ORDERED: CEFTRIAXONE 1 GM/50 ML (PMX) 50 ML IVPB SCH (15:00)
[2017-08-19] MEDS ORDERED: AZITHROMYCIN 500MG/NS (PMX) 250 ML IVPB SCH (16:00)
[2017-08-19 20:00] VITALS: BP 112/71; RESP 20
[2017-08-20 02:00] VITALS: BP 104/66; RESP 18
[2017-08-20 06:30] LABS: BASOPHILS % 0.3 % (0.0-2.0); EOSINOPHILS # 0.1 10^3/ul (0.0-0.5); EOSINOPHILS % 1.1 % (0.0-7.0); HEMOGLOBIN 12.8 g/dl (14.0-18.0); LYMPHOCYTES # 1.8 10^3/ul (0.8-2.9); LYMPHOCYTES % 14.9 % (15.0-51.0); MEAN CORPUSCULAR HEMOGLOBIN 28.7 pg (29.0-33.0); MEAN CORPUSCULAR HGB CONC 32.8 g/dl (32.0-37.0); MEAN CORPUSCULAR VOLUME 87.4 fl (82.0-101.0); MEAN PLATELET VOLUME 9.1 fl (7.4-10.4); MONOCYTE # 1.1 10^3/ul (0.3-0.9); MONOCYTES % 9.2 % (0.0-11.0); NEUTROPHILS % 73.2 % (39.0-77.0); PLATELET COUNT 426 10^3/UL (140-415); RED BLOOD COUNT 4.46 10^6/ul (4.70-6.10); RED CELL DISTRIBUTION WIDTH 13.7 % (11.5-14.5); WHITE BLOOD COUNT 12.3 10^3/ul (4.8-10.8)
[2017-08-20 06:45] LABS: CALCIUM 9.3 mg/dl (8.4-10.2); CREATININE 0.75 mg/dl (0.61-1.24); MAGNESIUM 2.1 mg/dl (1.7-2.5); PHOSPHORUS 4.3 mg/dl (2.5-4.9); POTASSIUM 4.3 mmol/L (3.5-5.1)
[2017-08-20 07:54] VITALS: BP 107/60; RESP 18
[2017-08-20] MEDS: CIPROFLOXACIN HCL OTIC DROP 0.25 ML LEFT EAR SCH (08:38)
--- NOTE | 2017-08-20 09:26 | PDOCDIS ---
Discharge Instructions CONDITION Patient Condition: Stable HOME CARE INSTRUCTIONS: Diet Instructions: Regular FOLLOW UP/APPOINTMENTS Follow-up Plan 1.Follow up with primary care physician in 1 week If you don't have one please let someone know, we can give you resources that may help you pick one. You may also call your insurance company to assign one to you. Review your medication list with your nurse before leaving and if you need new prescriptions please let your nurse know. I may have made changes to your home medications or given you new prescriptions, please let your primary doctor know as well. Stay compliant with your medications and report any side effects to your PCP or pharmacist. Return to the ER if you have any concerns and cannot reach your doctors or call your insurance company, they usually have a nurse that can help you. 2. Call 911 or go to the nearest emergency room if experiencing loss of consciousness, dizziness, chest pain, shortness of breath, vomiting/abdominal pain, speech difficulties, motor weakness or any unusual symptoms. KAIN MAHAN NP Aug 20, 2017 09:26
[2017-08-20] MEDS ORDERED: LEVO500T10 PO (09:28)
--- NOTE | 2017-08-20 09:33 | DS ---
Date/Time of Note Date/Time of Note DATE: 08/20/17 TIME: 09:31 Discharge Summary Admission/Discharge Info Admit Date/Time Aug 18, 2017 at 20:19 Discharge Date/Time Discharge Diagnosis 1. Status post sepsis, secondary to right lower lung pneumonia. RESOLVED 2. Tobacco use. 3. Former meth user. Patient Condition: Stable Procedures 08/18/2017. Chest x-ray. IMPRESSION: New patchy right lower lobe infiltrate. Right-sided aortic arch. Hospital Course This is a 31-year-old male with no significant past medical history other than history of meth use, tobacco use, missing teeth who presented to the emergency room for evaluation of cough, shortness of breath and subjective fevers with generalized body aches. Patient did not have any other symptoms. He was noted with right lower lobe infiltrate suggestive of pneumonia. Patient also had sepsis upon arrival. He was admitted. Patient was treated with broad-spectrum IV antibiotics. Cultures he had negative viral and influenza swab studies. Patient responded well to antibiotics. He did not have any further cough, fever. He did not have any further weakness. Patient was back to his baseline. Blood cultures so far did not grow any organism. At this time, there is no further inpatient workup indicated. Sepsis resolved and patient is medically stable for discharge. Disposition: Patient will be discharged home with outpatient primary care follow -up. He was given prescription for Levaquin 5 day course. Patient verbalized discharge instructions. Proximally 60 minutes was spent on coordinate discharge on this patient. Patient was seen in collaboration with Dr. Delarosa. Home Meds Active Scripts Levofloxacin* (Levofloxacin*) 500 Mg Tablet, 500 MG PO DAILY for 5 Days, #5 TAB Prov:KAIN MAHAN NP 08/20/17 Acetaminophen* (Tylophen*) 500 Mg Capsule, 1 CAP PO Q6H Y for PAIN AND OR ELEVATED TEMP, #20 CAP Prov:FRENCH SHIPLEY NP 08/12/17 Albuterol Sulfate* (Proair HFA*) 8.5 Gm Hfa.aer.ad, 2 PUFF INH Q4H Y for WHEEZING AND SOB, #1 INHALER Prov:FRENCH SHIPLEY NP 08/12/17 Guaifenesin-Codeine Phosphate* (Guaifenesin* AC Cough Syrup) 473 Ml Liquid, 10 ML PO Q4H Y for COUGH, #60 ML Prov:FRENCH SHIPLEY LINING MACHINE OPERATOR 08/12/17 Cetirizine Hcl* (Zyrtec*) 10 Mg Capsule, 10 MG PO DAILY, #30 TAB.CHEW Prov:FRENCH SHIPLEY. LINING MACHINE OPERATOR 08/12/17 Ibuprofen* (Motrin*) 600 Mg Tab, 600 MG PO Q6H Y for PAIN AND OR ELEVATED TEMP, #30 TAB Prov:FRENCH SHIPLEY LINING MACHINE OPERATOR 08/12/17 Cephalexin* (Keflex*) 500 Mg Capsule, 500 MG PO QID for 7 Days, CAP Prov:MAINOR ARCEO LINING MACHINE OPERATOR 05/18/17 Ofloxacin Otic (Ofloxacin Otic) 5 Ml Drops, 5 DROP LEFT EAR BID for 10 Days, #1 BOTTLE Prov:MAINOR ARCEO. KENDY 05/18/17 Ibuprofen* (Motrin*) 800 Mg Tab, 800 MG PO Q8 Y for PAIN AND OR ELEVATED TEMP, # 30 TAB Prov:MAINOR ARCEO. LINING MACHINE OPERATOR 05/18/17 Ibuprofen* (Motrin*) 600 Mg Tab, 600 MG PO Q6H Y for PAIN AND OR ELEVATED TEMP, #30 TAB Prov:MAINOR ARCEO. LINING MACHINE OPERATOR 11/12/16 Ibuprofen* (Motrin*) 800 Mg Tab, 800 MG PO Q6, #30 TAB Prov:LESTER MAHARAJ DO 05/11/16 Hydrocodone Bit-Acetaminophen* ([place]*) 7.5-325 Tablet, 1 TAB PO Q4H Y for PAIN , #14 TAB Prov:LESTER MAHARAJ DO 05/11/16 Follow-up Plan 1.Follow up with primary care physician in 1 week If you don't have one please let someone know, we can give you resources that may help you pick one. You may also call your insurance company to assign one to you. Review your medication list with your nurse before leaving and if you need new prescriptions please let your nurse know. I may have made changes to your home medications or given you new prescriptions, please let your primary doctor know as well. Stay compliant with your medications and report any side effects to your PCP or pharmacist. Return to the ER if you have any concerns and cannot reach your doctors or call your insurance company, they usually have a nurse that can help you. 2. Call 911 or go to the nearest emergency room if experiencing loss of consciousness, dizziness, chest pain, shortness of breath, vomiting/abdominal pain, speech difficulties, motor weakness or any unusual symptoms. Primary Care Provider [facility] Pending Labs Laboratory Tests Test 08/20/17 05:57 White Blood Count 12.310^3/ul (4.8-10.8) Red Blood Count 4.4610^6/ul (4.70-6.10) Hemoglobin 12.8g/dl (14.0-18.0) Hematocrit 39.0% (42.0-52.0) Mean Corpuscular Volume 87.4fl (82.0-101.0) Mean Corpuscular Hemoglobin 28.7pg (29.0-33.0) Mean Corpuscular Hemoglobin Concent 32.8g/dl (32.0-37.0) Red Cell Distribution Width 13.7% (11.5-14.5) Platelet Count 84244^3/UL (140-415) Mean Platelet Volume 9.1fl (7.4-10.4) Neutrophils % 73.2% (39.0-77.0) Lymphocytes % 14.9% (15.0-51.0) Monocytes % 9.2% (0.0-11.0) Eosinophils % 1.1% (0.0-7.0) Basophils % 0.3% (0.0-2.0) Nucleated Red Blood Cells % 0.0/100WBC (0.0-0.0) Neutrophils # 9.010^3/ul (1.6-7.5) Lymphocytes # 1.810^3/ul (0.8-2.9) Monocytes # 1.110^3/ul (0.3-0.9) Eosinophils # 0.110^3/ul (0.0-0.5) Basophils # 0.010^3/ul (0.0-0.1) Nucleated Red Blood Cells # 0.010^3/ul (0.0-0.0) Sodium Level 140mmol/L (135-144) Potassium Level 4.3mmol/L (3.5-5.1) Chloride Level 105mmol/L (97-110) Carbon Dioxide Level 29mmol/L (21-31) Anion Gap 10 (8-16) Blood Urea Nitrogen 7mg/dl (7-20) Creatinine 0.75mg/dl (0.61-1.24) Glucose Level 129mg/dl (70-220) Calcium Level 9.3mg/dl (8.4-10.2) Phosphorus Level 4.3mg/dl (2.5-4.9) Magnesium Level 2.1mg/dl (1.7-2.5) Microbiology Date/Time Source Procedure Growth Status 08/20/17 06:15 Nasopharyngeal Influenza Types A,B Direct EIA - Final Complete KAIN MAHAN V. LINING MACHINE OPERATOR Aug 20, 2017 09:33
== END 2017-08-20 11:44 | disposition home or self-care (01) | DRG 871 ==
LOC: FTE 12:30 → MS2 20:19
PROVIDERS: ADMIT Internal Medicine; ATTEND Internal Medicine
DX: A41.9 Sepsis, unspecified organism (principal); J18.9 Pneumonia, unspecified organism; F17.210 Nicotine dependence, cigarettes, uncomplicated; F15.10 Other stimulant abuse, uncomplicated; J45.909 Unspecified asthma, uncomplicated; J11.1 Influenza due to unidentified influenza virus with other respiratory manifestations
CPT/HCPCS: 36415; 71010; 80048; 80053; 81003; 83605; 83690; 83735; 84100; 85025; 87040; 87086; 87400; 87880; 96374; 96375; J0456; J0696; J1885; J2270; J2405; J7030

== ENCOUNTER 2017-12-11 19:48 | Emergency (ER) | END 2017-12-12 01:50 | disposition home or self-care (01) ==